=== PATIENT | female | born 1965 | race Caucasian/White ===

== ENCOUNTER → 2016-10-22 | Outpatient (CLI) | payer OTHER ==
--- NOTE | 2016-10-26 09:00 | MM ---
Reason for exam: history of breast cancer, mastectomy. Last mammogram was performed 2 years and 8 months ago. History: Patient is postmenopausal, has history of other cancer at age 48, and has history of breast cancer at age 40. Family history of breast cancer in sister at age 41. Chemotherapy, 2007. Malignant mastectomy of the left breast, June 28, 2006. Malignant US left CoreBiopsy of the left breast, June 02, 2006. Taking antineoplastic for 2 years beginning at age 48. Physical Findings: Nurse did not find any significant physical abnormalities on exam. [facility] Diagnostic Mammo RT w CAD CC, MLO, XCCL, LM, and ML view(s) were taken of the right breast. Prior study comparison: February 09, 2014, right breast [facility] diagnostic mammo RT w CAD. June 07, 2012, right diagnostic mammogram w/CAD. There are scattered fibroglandular densities. Finding: There are typically benign round calcifications in the upper outer quadrant of the right breast. No significant changes in finding since February 09, 2014 and June 07, 2012. These results were verbally communicated with the patient and result sheet given to the patient on 10/22/16. ASSESSMENT: Benign, BI-RAD 2 RECOMMENDATION: Routine screening mammogram of the right breast in 1 year. Manage patient on a clinical basis.
== END | disposition home or self-care (01) ==
LOC: RADMAMWWP 10:58
PROVIDERS: ATTEND Internal Medicine
DX: C50.912 Malignant neoplasm of unspecified site of left female breast (principal); C79.51 Secondary malignant neoplasm of bone; D59.9 Acquired hemolytic anemia, unspecified